=== PATIENT | female | born 2000 | race African-American/Black ===

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

== ENCOUNTER → 2022-09-08 11:08 | Outpatient (CLI) | payer OTHER, SELFPAY ==
[2022-09-08 14:16] LABS: Urine N gonorrhoeae NOT DETECTED
[2022-09-08 14:29] LABS: Urine Chlamydia NOT DETECTED
== END ==
PROVIDERS: PCP Family Medicine; Visit Provider Family Medicine
DX: Z11.3 Encounter for screening for infections with a predominantly sexual mode of transmission (principal); Z11.8 Encounter for screening for other infectious and parasitic diseases
CPT/HCPCS: 87491; 87591

== ENCOUNTER 2022-12-19 10:55 | Emergency (ER) | payer OTHER, SELFPAY ==
[2022-12-19 10:59] VITALS: BP 130/80; PULSE 79; RESP 14; TEMP 36.7; O2SAT 100; BMI 24.3
[2022-12-19 11:14] LABS: Strep Grp A by PCR Rapid Negative (Negative)
[2022-12-19 11:53] VITALS: BP 123/82; PULSE 84; RESP 18; TEMP 36.8; O2SAT 100
--- NOTE | 2022-12-19 11:56 | ED.URI ---
HPI - URI/Sore Throat <MAYA Montejo - Last Filed: 12/19/22 12:09> General Chief Complaint: Upper Respiratory Symptoms Stated Complaint: sore throat T-7 hurts to swallow & look up LT side Time Seen by Provider: 12/19/22 11:48 Source: patient Mode of arrival: Ambulatory History of Present Illness HPI Narrative: This is a 22-year-old female presents to the emergency department with her mother complaining left-sided throat pain and ear pain that has been getting worse over the last 5 days. 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 She does not have nonstick contacts, denies fever chills, vomiting. Related Data Home Medications Medication Instructions Recorded Confirmed medroxyprogesterone 150 mg/mL 150 mg IM [id number] 11/29/22 11/29/22 intramuscular suspension Previous Rx's Medication Instructions Recorded amoxicillin 875 mg-potassium 1 tab PO BID 7 days #14 tabs 12/19/22 clavulanate 125 mg tablet Allergies Allergy/AdvReac Type Severity Reaction Status Date / Time No Known Drug Allergies Allergy Verified 12/19/22 10:59 Review of Systems <MAYA Montejo - Last Filed: 12/19/22 12:09> Review of Systems ROS Unobtainable: All systems reviewed & are unremarkable except as noted in HPI and below Patient History <MAYA Montejo - Last Filed: 12/19/22 12:09> Medical History On Depo-Provera for contraception Social History Smoking Status: Never smoker Smoking Status: Never smoker alcohol intake frequency: holidays/special occasions only Substance Use Type: does not use Exam <MAYA Montejo - Last Filed: 12/19/22 12:09> Narrative Exam Narrative: Reviewed vitals signs and nursing notes. General: Pleasant, sitting upright, in no acute distress, well groomed, afebrile HEENT: symmetrical facial expressions, moist mucous membranes, neck is supple, posterior pharynx with mild erythema, uvula is midline, left-sided tonsillar adenopathy mildly greater than right-sided tonsillar adenopathy both tonsils approximally 1 to 2+, mild anterior cervical lymphadenopathy on the left to nodes less than 1 cm, right-sided cerumen impaction with muffled sound, nontender bilateral mastoids, left side TM with mild bulging, without erythema, clear fluid behind TM but moderate amount of cerumen present in canal. Neuro: Normal phonation and speech Initial Vital Signs Initial Vital Signs: Vital Signs Temperature 98.1 F 12/19/22 10:59 Pulse Rate 79 12/19/22 10:59 Respiratory Rate 14 12/19/22 10:59 Blood Pressure 130/80 12/19/22 10:59 Pulse Oximetry 100 12/19/22 10:59 Oxygen Delivery Method Room Air 12/19/22 10:59 <Emily Zelaya DO - Last Filed: 12/19/22 18:24> Initial Vital Signs Initial Vital Signs: Vital Signs Temperature 98.1 F 12/19/22 10:59 Pulse Rate 79 12/19/22 10:59 Respiratory Rate 14 12/19/22 10:59 Blood Pressure 130/80 12/19/22 10:59 Pulse Oximetry 100 12/19/22 10:59 Oxygen Delivery Method Room Air 12/19/22 10:59 Course <MAYA Montejo - Last Filed: 12/19/22 12:09> Orders Ordered: ED Orders 12/19/22 11:00 Strep Grp A by PCR Rapid Stat 12/19/22 11:55 Throat Culture Stat Discontinued Medications Amoxicillin/Clavulanate Potassium (Amoxicillin/Clav 875/125 Mg) 1 tab PO NOW ONE Stop: 12/19/22 11:57 Last Admin: 12/19/22 12:02 Dose: 1 tab Documented By: OMAR Ibuprofen (Ibuprofen 400 Mg Tablet) 600 mg PO NOW ONE Stop: 12/19/22 11:57 Last Admin: 12/19/22 12:03 Dose: 600 mg Documented By: OMAR Vital Signs Vital signs: Vital Signs - 8 hr 12/19/22 10:59 12/19/22 11:53 Temperature 98.1 F 98.2 F Pulse Rate 79 84 Respiratory Rate 14 18 Blood Pressure 130/80 123/82 Pulse Oximetry 100 100 Oxygen Delivery Method Room Air Room Air <Emily Zelaya DO - Last Filed: 12/19/22 18:24> Orders Ordered: ED Orders 12/19/22 11:00 Strep Grp A by PCR Rapid Stat 12/19/22 11:55 Throat Culture Stat Discontinued Medications Amoxicillin/Clavulanate Potassium (Amoxicillin/Clav 875/125 Mg) 1 tab PO NOW ONE Stop: 12/19/22 11:57 Last Admin: 12/19/22 12:02 Dose: 1 tab Documented By: OMAR Ibuprofen (Ibuprofen 400 Mg Tablet) 600 mg PO NOW ONE Stop: 12/19/22 11:57 Last Admin: 12/19/22 12:03 Dose: 600 mg Documented By: OMAR Vital Signs Vital signs: Vital Signs - 8 hr 12/19/22 10:59 12/19/22 11:53 Temperature 98.1 F 98.2 F Pulse Rate 79 84 Respiratory Rate 14 18 Blood Pressure 130/80 123/82 Pulse Oximetry 100 100 Oxygen Delivery Method Room Air Room Air MDM - URI/Sore Throat <BHAKTI MontejoP - Last Filed: 12/19/22 12:09> Lab Data Labs: Lab Results 12/19/22 Range/Units 11:00 Group A Strep (PCR) Negative (Negative) MDM Narrative Medical decision making narrative: Chief Complaint: Throat and ear pain Multiple etiologies for patient's complaint considered including, but not limited to: Tonsillar abscess, retropharyngeal abscess, strep throat, viral pharyngitis, cerumen impaction, left otitis media, middle ear effusion, viral respiratory illness I have independently reviewed the patient's vital signs and nursing notes as well as prior records if available. Plan: Patient's pain was treated with ibuprofen, will treat for pharyngitis as left tonsil has mild exudate and is slightly larger than right, right-sided ear pain and anterior cervical lymphadenopathy without a cough. Throat culture is pending, rapid strep was negative, patient is nontoxic appearing, normal phonation in clear speech, no difficulty swallowing or speaking Social considerations that may affect disposition: none Questions are addressed and there is agreement with the plan and for follow-up. I consulted with the ED attending physician Dr. Zelaya as needed for higher level of care considerations and they were available for discussion and recommendations regarding plan of care and diagnostic testing. Patient is appropriate for outpatient management. <Emily Zelaya DO - Last Filed: 12/19/22 18:24> Lab Data Labs: Lab Results 12/19/22 Range/Units 11:00 Group A Strep (PCR) Negative (Negative) Discharge Plan Departure Patient Disposition: Home Clinical Impression: Anterior cervical adenopathy Cerumen impaction Qualifiers: Laterality: right Qualified Code(s): H61.21 - Impacted cerumen, right ear Pharyngitis Qualifiers: Pharyngitis/tonsillitis etiology: unspecified etiology Qualified Code(s): J02.9 - Acute pharyngitis, unspecified Acute ear pain Qualifiers: Laterality: left Qualified Code(s): H92.02 - Otalgia, left ear Instructions: DI for Cerumen Impaction, DI for Viral Pharyngitis, DI for Middle Ear Infection-Adult Activity Restrictions/Additional Instructions: *You have been diagnosed with throat which could be related to a viral infection or strep throat, we will treat you for an ear infection and strep throat as this antibiotic will cover for both and follow-up on the throat culture. Please use an antihistamine for ear pain and pressure like Zyrtec/cetirizine or Ashely. Please stay hydrated, take your antibiotic twice a day for the next 7 days and use ibuprofen 600 mg every 6 hours as needed for pain. Please take your medications with food so that your stomach doesn't get upset. Use throat lozenges and try tea with honey. *What to do: *Please continue to take your regular medications as directed. [ x] New medication prescriptions sent to your pharmacy: [[facility] [place] ] [ ] New medication written as a paper prescription [ ] No new medications given *Please call and schedule follow up with your primary care provider in 2-3 days, at least for an update. Let them know you were seen in the Emergency Department for the above problem. We will electronically transmit a record of today's note if your PCP or specialist is in our system. *If you do not have a primary care provider please contact [phone] to establish care with one of the [facility] primary care providers. *Return to the Emergency Department for worsening symptoms, inability to keep liquids down, fever greater than 101F, chills, or other concerning symptom. Prescriptions: New amoxicillin-pot clavulanate 875-125 mg tablet 1 tab PO BID 7 Days Qty: 14 0RF No Action medroxyprogesterone 150 mg/mL suspension 150 mg IM [id number] Referrals: Elena Long DO [Primary Care Provider] - Stand Alone Forms: Patient Portal/API <Emily Zelaya DO - Last Filed: 12/19/22 18:24> Cosign ED Attending Cosignature Attestation: I was immediately available in the department for consultation. Documentation has been reviewed.
[2022-12-19] MEDS: AMOXICILLIN/CLAV 875/125 MG 1 TAB PO (12:02)
[2022-12-19] MEDS: IBUPROFEN 400 MG TABLET 600 MG PO (12:03)
== END 2022-12-19 12:14 | disposition home or self-care (01) ==
PROVIDERS: Emergency Medicine; Emergency Provider Nurse Practitioner Critical Care Medicine; PCP Family Medicine
DX: J02.9 Acute pharyngitis, unspecified (principal); H92.02 Otalgia, left ear; H61.21 Impacted cerumen, right ear; R59.0 Localized enlarged lymph nodes
CPT/HCPCS: 87070; 87651; 99283

== ENCOUNTER 2023-12-12 14:45 | Emergency (ER) | payer OTHER, SELFPAY ==
[2023-12-12] VITALS (10 sets, daily range): BP systolic 108–128; BP diastolic 69–81; PULSE 61–92; RESP 14–16; TEMP 37; O2SAT 97–100; BMI 20.9
--- NOTE | 2023-12-12 15:15 | DI.US.S_ITS ---
PROCEDURE: US ABDOMEN LIMITED INDICATIONS: RUQ PAIN TECHNIQUE: Real-time focused scanning was performed of the abdomen, with image documentation. COMPARISON: None. FINDINGS: The liver appears normal. The gallbladder is abnormal and is nearly stone filled by 6 mm stones, multiple. The gallbladder wall, however, is not abnormally thickened at 1.5 mm and no focal tenderness during sonographic palpation is present. The bile ducts are normal in caliber, the pancreas appears normal also. IMPRESSION: Stone filled gallbladder without evidence of biliary obstruction or acute cholecystitis. Dictated by: Easton Swann M.D. on 12/12/2023 at 16:39 Approved by: Easton Swann M.D. on 12/12/2023 at 16:40
[2023-12-12 15:27] LABS: Add Manual Diff / Slide Review NO; Basophils Absolute Auto 0 /uL (0-100); Basophils Percent Auto 0.5 % (0-2); Eosinophils Absolute Auto 0 /uL (0-450); Eosinophils Percent Auto 0.5 % (2-4); Hematocrit 39.7 % (36-46); Hemoglobin 13.8 g/dL (12.0-16.0); Lymphocytes Absolute Auto 2600 /uL (1100-4500); Lymphocytes Percent Auto 52.7 % (25-40); Mean Corpuscular HGB Conc 34.7 % (30-36); Mean Corpuscular Hemoglobin 33.1 PG (26-34); Mean Corpuscular Volume 95.4 fL (80-100); Monocytes Absolute Auto 300 /uL (0-900); Monocytes Percent Auto 6.5 % (3-14); Neutrophils Absolute Auto 2000 /uL (1500-7000); Neutrophils Percent Auto 39.8 % (50-75); Platelet Count 215 X10^3/uL (150-400); Red Blood Cell Count 4.16 X10^6/uL (4.0-5.2); Red Cell Distribution Width 13.2 % (11.6-14.8); White Blood Cell Count 4.9 X10^3/uL (4.5-11.0)
--- NOTE | 2023-12-12 15:27 | ED.GENADULT ---
HPI - General Adult General Chief complaint: Abdominal Pain Stated complaint: sent by CADEN Figueroa for gall stones Time Seen by Provider: 12/12/23 14:49 Source: patient Mode of arrival: Family Vehicle History of Present Illness HPI narrative: Patient is a 23-year-old female who for the past several weeks has had decreased appetite because of epigastric and right upper quadrant discomfort with eating. Today she went to the walk-in clinic for the 2nd time for the symptoms. Apparently had a urine sample showed bilirubin. Unsure if she had any lab work done. These records are not available for review during my initial evaluation. She had a CT scan performed during that visit. She received a call from the walk-in clinic advising her to come to the emergency department because she would stones in her gallbladder and she potentially needed to have her gallbladder removed. She denies any urinary symptoms. No vomiting no fever is no change in bowel habits but states she has been a little constipated. No skin rashes. No prior abdominal surgeries. Has been on omeprazole the past several days/week or longer. Related Data Home Medications Medication Instructions Recorded Confirmed etonogestrel 68 mg subdermal subdermal 02/07/23 04/18/23 implant (Nexplanon) Previous Rx's Medication Instructions Recorded hydrocodone 5 mg-acetaminophen 325 1 tab PO Q8H PRN pain #10 tabs 12/12/23 mg tablet Allergies Allergy/AdvReac Type Severity Reaction Status Date / Time amoxicillin [From Augmentin] Allergy Intermediate Hives Verified 04/18/23 15:15 clavulanic acid Allergy Intermediate Hives Verified 04/18/23 15:15 [From Augmentin] Review of Systems Review of Systems ROS Unobtainable: All systems reviewed & are unremarkable except as noted in HPI and below Patient History Medical History Presence of subdermal contraceptive implant LGSIL on Pap smear of cervix Cervical high risk human papillomavirus (HPV) DNA test positive Social History Smoking Status: Never smoker Smoking Status: Never smoker alcohol intake frequency: holidays/special occasions only Substance Use Type: does not use Exam Initial Vital Signs Initial Vital Signs: Vital Signs Temperature 98.6 F 12/12/23 14:59 Pulse Rate 92 H 12/12/23 14:59 Respiratory Rate 16 12/12/23 14:59 Blood Pressure 128/81 12/12/23 14:59 Pulse Oximetry 99 12/12/23 14:59 Oxygen Delivery Method Room Air 12/12/23 14:59 HENMT Head: normal to inspection and normocephalic Resp Effort & Inspection: normal respiratory effort Auscultation: clear to auscultation bilaterally Cardio Rate: regular rate GI Inspection: normal to inspection and non-distended Palpation: soft, No firm, No guarding and tender (Epigastric and right upper quadrant) Neuro General: patient alert and patient awake Course Orders Ordered: ED Orders 12/12/23 15:15 US abdomen limited Stat 12/12/23 15:20 Complete Blood Count AUTO DIFF Stat Comprehensive Metabolic Panel Stat Lipase Stat 12/12/23 16:59 Consult to General Surgery Stat Vital Signs Vital signs: Vital Signs - 8 hr 12/12/23 14:59 12/12/23 15:21 12/12/23 15:30 Temperature 98.6 F Pulse Rate 92 H 85 80 Respiratory Rate 16 Blood Pressure 128/81 Pulse Oximetry 99 97 98 Oxygen Delivery Method Room Air 12/12/23 16:00 12/12/23 16:30 12/12/23 16:30 Temperature Pulse Rate 73 66 Respiratory Rate Blood Pressure 117/74 Pulse Oximetry 98 98 Oxygen Delivery Method 12/12/23 17:00 12/12/23 17:00 Temperature Pulse Rate 61 Respiratory Rate Blood Pressure 120/69 Pulse Oximetry 98 Oxygen Delivery Method Medical Decision Making Lab Data Lab results reviewed: Yes I reviewed the patient's lab results. 12/12/23 15:20 12/12/23 15:20 Labs: Lab Results 12/12/23 Range/Units 15:20 WBC 4.9 (4.5-11.0) X10^3/uL RBC 4.16 (4.0-5.2) X10^6/uL Hgb 13.8 (12.0-16.0) g/dL Hct 39.7 (36-46) % MCV 95.4 (80-100) fL MCH 33.1 (26-34) PG MCHC 34.7 (30-36) % RDW 13.2 (11.6-14.8) % Plt Count 215 (150-400) X10^3/uL Neut % (Auto) 39.8 L (50-75) % Lymph % (Auto) 52.7 H (25-40) % Wright % (Auto) 6.5 (3-14) % Eos % (Auto) 0.5 L (2-4) % Baso % (Auto) 0.5 (0-2) % Neut # (Auto) 2000 (4343-9973) /uL Lymph # (Auto) 2600 (5781-2909) /uL Wright # (Auto) 300 (0-900) /uL Eos # (Auto) 0 (0-450) /uL Baso # (Auto) 0 (0-100) /uL Sodium 137 (137-145) mmol/L Potassium 3.6 (3.4-5.1) mmol/L Chloride 102 (98-107) mmol/L Carbon Dioxide 26 (22-32) mmol/L BUN 8 (7-17) mg/dL Creatinine 0.68 (0.52-1.04) mg/dL Estimated GFR > 60 (>60) mL/min BUN/Creatinine Ratio 11.8 (6-22) Glucose 121 H (70-100) mg/dL Calcium 9.1 (8.4-10.2) mg/dL Total Bilirubin 1.0 (0.2-1.3) mg/dL AST 20 (14-36) IU/L ALT 13 (<35) IU/L Alkaline Phosphatase 43 (38-126) U/L Total Protein 7.6 (6.3-8.2) g/dL Albumin 4.5 (3.5-5.0) g/dL Globulin 3.1 (1.7-4.1) g/dL Albumin/Globulin Ratio 1.5 (1.0-2.8) Lipase 44 (23-300) U/L Point of Care Testing Test Results Negative Urine Dip Bedside Urine Glucose Negative Bedside Urine Bilirubin - Negative Bedside Urine Ketone + 15 Urine Specific [place]ley 1.000 Bedside Urine Occult Blood - Negative Bedside Urine pH 6.0 Bedside Urine Protein - Negative Bedside Urine Urobilinogen - Negative Bedside Urine Nitrite - Negative Bedside Urine Leukocytes - Negative Esterase Point of care testing: Point of Care Testing Test Results Negative Urine Dip Bedside Urine Glucose Negative Bedside Urine Bilirubin - Negative Bedside Urine Ketone + 15 Urine Specific [place]ley 1.000 Bedside Urine Occult Blood - Negative Bedside Urine pH 6.0 Bedside Urine Protein - Negative Bedside Urine Urobilinogen - Negative Bedside Urine Nitrite - Negative Bedside Urine Leukocytes - Negative Esterase Imaging Data US - abdomen: Radiologist's Impression: PROCEDURE: US ABDOMEN LIMITED INDICATIONS: RUQ PAIN TECHNIQUE: Real-time focused scanning was performed of the abdomen, with image documentation. COMPARISON: None. FINDINGS: The liver appears normal. The gallbladder is abnormal and is nearly stone filled by 6 mm stones, multiple. The gallbladder wall, however, is not abnormally thickened at 1.5 mm and no focal tenderness during sonographic palpation is present. The bile ducts are normal in caliber, the pancreas appears normal also. IMPRESSION: Stone filled gallbladder without evidence of biliary obstruction or acute cholecystitis. MDM Narrative Medical decision making narrative: Patient does have epigastric and right upper quadrant abdominal pain her LFTs and lipase and bilirubin are unremarkable. She was afebrile. Right upper quadrant ultrasound shows cholelithiasis without signs of acute cholecystitis. Discussed the case with Dr. Zamarripa on-call for General surgery. Plan will be to have the patient come back on Sunday for an outpatient surgery. Patient was given information for this. She was given return precautions. She has nausea medicine at home. Was sent home with pain medication as well. Discussed bland diet and NPO status prior to surgery. Patient was given return precautions. She expressed understanding and agreement. Discharge Plan Departure Patient Disposition: Home Clinical Impression: Cholelithiasis Instructions: DI for Gallstones Activity Restrictions/Additional Instructions: I do recommend a bland diet. I was able to talk with Dr. Zamarripa who was on General surgery on-call. She recommends the removal of your gallbladder. You are scheduled for surgery on Sunday12/14/2023 at [facility]. He will need to check in at the main registration desk at 0645 hours. Nothing to eat after midnight on 12/13/2023. Use the pain medicine and nausea medication as directed. Return to the emergency department for new symptoms. Prescriptions: New hydrocodone-acetaminophen 5-325 mg tablet 1 tab PO Q8H PRN (Reason: pain) Qty: 10 0RF No Action Nexplanon 68 mg implant subdermal Rx Instructions: inserted on 02-07-23 needs to be replaced on 02-07-26 Referrals: Cathy Zamarripa MD [Physician] - Jorge Underwood ARNP [Primary Care Provider] - Stand Alone Forms: Patient Portal/API
[2023-12-12 15:41] LABS: Lipase 44 U/L (23-300)
[2023-12-12 15:42] LABS: Alanine Aminotransferase 13 IU/L (<35); Albumin 4.5 g/dL (3.5-5.0); Albumin Globulin Ratio 1.5 (1.0-2.8); Alkaline Phosphatase 43 U/L (38-126); Aspartate Aminotransferase 20 IU/L (14-36); BUN Creatinine Ratio 11.8 (6-22); Blood Urea Nitrogen 8 mg/dL (7-17); Calcium 9.1 mg/dL (8.4-10.2); Carbon Dioxide 26 mmol/L (22-32); Chloride 102 mmol/L (98-107); Estimated Glomerular Filt Rate > 60 mL/min (>60); Globulin 3.1 g/dL (1.7-4.1); Glucose 121 mg/dL (70-100); HEMOLYSIS 17 (0-50); Potassium 3.6 mmol/L (3.4-5.1); Sodium 137 mmol/L (137-145); Total Protein 7.6 g/dL (6.3-8.2)
== END 2023-12-12 18:18 | disposition home or self-care (01) ==
PROVIDERS: Emergency Provider Emergency Medicine; PCP Registered Nurse Diabetes Educator
DX: K80.20 Calculus of gallbladder without cholecystitis without obstruction (principal)
CPT/HCPCS: 36415; 76705; 80053; 81003; 81025; 83690; 85025; 99283

== ENCOUNTER 2023-12-14 06:45 | Day surgery (SDC) | payer OTHER, SELFPAY ==
--- NOTE | 2023-12-14 | PATH_ITS ---
[facility] Accession Number: [id number] No. of containers..01 Tissue . 01 Material submitted: . gallbladder - GALLBLADDER . 01 Diagnosis: GALLBLADDER, CHOLECYSTECTOMY: Cholelithiasis. Mild chronic inflammation. Negative for dysplasia and malignancy. [facility] 12/17/2023 1011 Local . 01 Electronically signed: . Bell Andrea MD, Pathologist NPI- [id number] . 01 Gross description: . Received in formalin, labeled with two identifiers and gallbladder, is an intact gallbladder measuring 8.5 x 2.5 x 2.5 cm with an unremarkable external surface. The cystic duct margin is inked blue. No pericystic lymph node is identified. The lumen contains multiple yellow, bosselated calculi measuring up to 0.6 cm in greatest dimension, not grossly obstructing the cystic duct. The bile is dark green and viscous. The mucosa is green and velvety with no yellow discoloration, polyps, or lesions identified. The hanson average 0.1 cm thick. Tapper Supervisor sections to include the cystic duct margin and full-thickness sections are submitted in cassette A1. ([id number]) /[facility] 12/15/2023 1851 Local . 01 Pathologist provided ICD-10: K80.60 . 01 CPT . 209639 Specimen Comment: A courtesy copy of this report has been sent to [phone] Performed at: [address] [address], [place], [place] [id number] MD Angelo Harris MD Phone: [phone]
[2023-12-14 07:20] VITALS: BP 129/85; PULSE 77; RESP 20; TEMP 36.2; O2SAT 100; BMI 20.9
[2023-12-14] MEDS: LACTATED RINGERS 1,000 ML 42 ML IV (07:20)
--- NOTE | 2023-12-14 07:41 | PM.HP.1 ---
History of Present Illness History of Present Illness Date Patient Seen: 12/14/23 Time Patient Seen: 07:41 Chief complaint: Lap Eliezer Narrative: Recurrent biliary. Multiple RUQ pain episodes, weight loss and nausea. [facility] Medical History Presence of subdermal contraceptive implant LGSIL on Pap smear of cervix Cervical high risk human papillomavirus (HPV) DNA test positive Social History household members: family Smoking Status: Never smoker Meds Home Medications and Allergies Home Medications Medication Instructions Recorded Confirmed Type etonogestrel 68 mg subdermal subdermal 02/07/23 04/18/23 History implant (Nexplanon) hydrocodone 5 mg-acetaminophen 325 1 tab PO Q8H PRN pain #10 tabs 12/12/23 12/14/23 Rx mg tablet Allergies Allergy/AdvReac Type Severity Reaction Status Date / Time amoxicillin [From Augmentin] Allergy Intermediate Hives Verified 12/14/23 07:18 clavulanic acid Allergy Intermediate Hives Verified 12/14/23 07:18 [From Augmentin] Review of Systems Review of Systems ROS: Yes All systems reviewed with the patient and are negative except as otherwise documented Exam Vital Signs (past 8 hours): - 12/14/23 07:20 Temperature 97.1 F L Pulse Rate 77 Respiratory Rate 20 Blood Pressure 129/85 Pulse Oximetry 100 Oxygen Delivery Method Room Air Oxygen Delivery Method Room Air Const General: cooperative and healthy appearing Nutritional Appearance: thin HENMT Head: normocephalic and atraumatic Eyes General: appearance normal, both eyes and all related structures Sclera: sclerae normal Neck Neck: trachea midline Resp Effort & Inspection: normal respiratory effort and able to speak in complete sentences Cardio Rate: regular rate Rhythm: regular rhythm GI Palpation: soft Skin General: turgor normal and No atrophy Neuro General: patient alert, patient awake and patient oriented x3 Cognition: normal cognition Psych Mental Status: mental status grossly normal Judgment: judgment good Assessment & Plan Assessment & Plan narrative: Recurrent biliary colic Plan: Lap eliezer Time-Based Coding :: [TOTAL MINUTES] spent with patient and on the chart (including review of chart, obtaining history, exam, reviewing outside data, placing orders, documenting exam and treatment plan, and counseling patient) on [DATE].
--- NOTE | 2023-12-14 07:46 | PM.EVENT ---
Event Note Date Patient Seen: 12/14/23 Time Patient Seen: 07:46 Event Note (Rapid Response, Code, or fall): To whom it may concern; Chaparro Denise is recovering from surgery and requires time off until 12/24/2023. And no heavy lifting (>15lbs) til . Sincerely; Dr. Halima Zamarripa MD
--- NOTE | 2023-12-14 08:04 | SUR.OPER ---
Supine on padded OR bed, head on pillow, arms secured on padded arm boards at <90 degrees abduction, legs uncrossed, safety belt at thigh, tape over blanket over lower legs.
[2023-12-14] MEDS: CEFAZOLIN 2 GM/100 ML PREMIX 100 ML IV (08:05)
[2023-12-14] MEDS: BUPIVACAINE 0.5% W/ EPI (PF) 30 ML VIAL INJ (08:24)
[2023-12-14] MEDS: ACETAMINOPHEN IV 1,000 MG/100 ML VIAL 400 MG IV (08:35)
--- NOTE | 2023-12-14 08:58 | PM.OP.1 ---
Operative Date/Time/Diagnoses Date of procedure: 12/14/23 Time of procedure: 08:58 Pre-op diagnosis: Recurrent biliary colic Post-op diagnosis: same Procedure & Clinicians Procedure: laparoscopic cholecystectomy Same procedure as scheduled: Yes Anesthesia Type: General and Local Operative Notes Findings: gallbladder with stones Closure Type: primary Specimen(s): other ( gallbladder) Estimated Blood Loss (mL): 15 Blood products transfused: none Procedure in detail: preop diagnosis: Recurrent biliary colic Postop diagnosis: Same Operative procedure: Laparoscopic cholecystectomy Surgeon: Halima Zamarripa MD Anesthetic: ET tube intubation along with local Findings: Gallbladder with gallstones Procedure: Patient placed in Supine position. Prepped and draped sterile fashion. Infraumbilical port site was placed using open technique a 12 mm port. Insufflation began all other ports were placed under direct vision including a 5 mm port in the midepigastrium and 2 5 mm ports in the right lateral abdomen. Gallbladder was grasped pushed cephalad for exposure. Cystic duct was identified, clipped twice proximally and once distally prior to transection. Cystic artery was identified clipped once distally once proximally and transected. Gallbladder was removed from the fossa bed electrocautery and sharp dissection. Hemostasis was achieved with electrocautery. Gallbladder was then placed into an Endo-Catch bag and pulled through the infraumbilical port site intact. I surveyed the abdomen for hemostasis then removed all ports began closure. Closure consisted of interrupted 0 Vicryl for fascial closure. Skin was closed with a running 4-0 Vicryl. Steri-Strips and sterile dressings were placed. Patient was awakened, extubated, taken to recovery room in stable condition. Needle, instrument, sponge counts were correct Specimen: Gallbladder Blood loss: 15 mL Complications: none Post-operative Condition: stable Disposition: PACU
[2023-12-14 09:00] VITALS: BP 115/67; PULSE 85; RESP 12; TEMP 36.8; O2SAT 100
[2023-12-14 09:05] VITALS: BP 123/74; PULSE 87; RESP 16; O2SAT 100
[2023-12-14 09:10] VITALS: BP 119/76; PULSE 94; RESP 20; O2SAT 100
[2023-12-14 09:15] VITALS: BP 126/62; PULSE 85; RESP 16; TEMP 36.1; O2SAT 100
[2023-12-14 09:25] VITALS: BP 122/77; PULSE 70; RESP 12; O2SAT 100
[2023-12-14] MEDS: OXYCODONE IR 5 MG TABLET PO (09:34)
== END 2023-12-14 10:14 | disposition home or self-care (01) ==
PROVIDERS: PCP Registered Nurse Diabetes Educator; Referring Provider Surgery; Visit Provider Surgery
PROC: 0FT44ZZ Resection of Gallbladder, Percutaneous Endoscopic Approach (ICD-10-PCS; CPT 47562; principal; 2023-12-14 07:45)
DX: K80.20 Calculus of gallbladder without cholecystitis without obstruction (principal)
CPT/HCPCS: 47562; J0136; J0690; J1100; J1170; J2405; J2704

== ENCOUNTER → 2024-10-17 16:41 | Outpatient (CLI) | payer OTHER, SELFPAY ==
--- NOTE | 2024-10-17 16:42 | DI.US.S_ITS ---
PROCEDURE: US ABDOMEN COMPLETE INDICATIONS: ongoing abdominal pain TECHNIQUE: Real-time scanning was performed of the abdominal and retroperitoneal organs, with image documentation. COMPARISON: [facility], , US ABDOMEN LIMITED, 12/12/2023, 15:49. FINDINGS: Liver: The liver is normal in size. Number straits normal overall echotexture. However, the portal triads are mildly echogenic. Gallbladder: Removed. Biliary ducts: Intrahepatic bile ducts are non-dilated. Extrahepatic bile duct caliber measures 4 mm. Normal is 6-7 mm or less in diameter, or 10 mm or less post-cholecystectomy. Pancreas: Visualized portions of the pancreas are sonographically normal. Spleen: Spleen is normal in size and homogeneous in echotexture. Kidneys: Kidneys are normal in size and echotexture. Right kidney measures 8.6 cm long; left kidney measures 9.2 cm long. No hydronephrosis or nephrolithiasis. No solid masses. Aorta: Visualized aorta is normal in caliber at less than 3 cm. Iliacs: Proximal common iliac arteries are normal in caliber at less than 2.5 cm. IVC: Intrahepatic inferior vena cava is patent. Miscellaneous: No free abdominal fluid. IMPRESSION: Status post cholecystectomy, without biliary dilatation. The liver demonstrates mildly echogenic portal triads. This is nonspecific, although it can be seen in patients with hepatitis. Dictated by: Jaspal Verma M.D. on 10/17/2024 at 16:56 Approved by: Jaspal Verma M.D. on 10/17/2024 at 16:58
== END ==
LOC: US 16:42
PROVIDERS: PCP Registered Nurse Diabetes Educator; Referring Provider Family Medicine; Visit Provider Family Medicine
DX: R10.9 Unspecified abdominal pain (principal); Z90.49 Acquired absence of other specified parts of digestive tract
CPT/HCPCS: 76700

== ENCOUNTER → 2024-10-24 16:33 | Outpatient (CLI) | payer OTHER, SELFPAY ==
[2024-10-24 17:46] LABS: Add Manual Diff / Slide Review NO; Basophils Absolute Auto 0 /uL (0-100); Basophils Percent Auto 0.4 % (0-2); Eosinophils Absolute Auto 300 /uL (0-450); Eosinophils Percent Auto 4.4 % (2-4); Hematocrit 33.8 % (36-46); Hemoglobin 11.1 g/dL (12.0-16.0); Lymphocytes Absolute Auto 3000 /uL (1100-4500); Lymphocytes Percent Auto 48.2 % (25-40); Mean Corpuscular HGB Conc 32.9 % (30-36); Mean Corpuscular Hemoglobin 29.1 PG (26-34); Mean Corpuscular Volume 88.3 fL (80-100); Monocytes Absolute Auto 500 /uL (0-900); Monocytes Percent Auto 7.8 % (3-14); Neutrophils Absolute Auto 2400 /uL (1500-7000); Neutrophils Percent Auto 39.2 % (50-75); Platelet Count 374 X10^3/uL (150-400); Red Blood Cell Count 3.82 X10^6/uL (4.0-5.2); Red Cell Distribution Width 14.7 % (11.6-14.8); White Blood Cell Count 6.2 X10^3/uL (4.5-11.0)
[2024-10-24 18:02] LABS: Alanine Aminotransferase 15 IU/L (<35); Albumin 4.6 g/dL (3.5-5.0); Albumin Globulin Ratio 1.6 (1.0-2.8); Alkaline Phosphatase 60 U/L (38-126); Aspartate Aminotransferase 23 IU/L (14-36); BUN Creatinine Ratio 17.1 (6-22); Bilirubin Total 0.4 mg/dL (0.2-1.3); Blood Urea Nitrogen 12 mg/dL (7-17); Calcium 9.4 mg/dL (8.4-10.2); Carbon Dioxide 26 mmol/L (22-32); Chloride 101 mmol/L (98-107); Estimated Glomerular Filt Rate > 60 mL/min (>60); Globulin 2.8 g/dL (1.7-4.1); Glucose 79 mg/dL (70-99); HEMOLYSIS < 15 (0-50); Lipase 81 U/L (23-300); Potassium 4.1 mmol/L (3.4-5.1); Sodium 138 mmol/L (137-145); Total Protein 7.4 g/dL (6.3-8.2)
[2024-10-25 03:39] LABS: HBsAg Screen Negative (Negative); Hepatitis A Antibody IgM Negative (Negative); Hepatitis B Core Antibody IgM Negative (Negative); Hepatitis C Antibody Non Reactive (Non Reactive)
[2024-10-28 14:36] LABS: Deamidated Gliadin Ab IgA 3 units (0-19); Deamidated Gliadin Ab IgG 2 units (0-19); Immunoglobulin A,Qn 132 mg/dL (87-352); t-Transglutaminase IgA 2 U/mL (0-3)
== END ==
LOC: LAB 16:34
PROVIDERS: PCP Registered Nurse Diabetes Educator; Referring Provider Family Medicine; Visit Provider Family Medicine
DX: R10.9 Unspecified abdominal pain (principal)
CPT/HCPCS: 36415; 80053; 80074; 82784; 83516; 83690; 85025

== ENCOUNTER → 2025-06-09 14:53 | Outpatient (CLI) | payer OTHER, SELFPAY ==
[2025-06-09 15:56] LABS: HEMOLYSIS < 15 (0-50); Iron 29 ug/dL (37-170)
[2025-06-09 16:07] LABS: Percent Iron Saturation 6 % (15-50); Total Iron Binding Capacity 483 ug/dL (265-497); Transferrin 399 mg/dL (206-381)
== END ==
PROVIDERS: PCP Family Medicine; Referring Provider Family Medicine; Visit Provider Family Medicine
DX: F50.89 Other specified eating disorder (principal)
CPT/HCPCS: 36415; 83540; 83550